=== PATIENT | male | born 1965 | race Caucasian/White ===

== ENCOUNTER 2018-05-07 23:00 | Emergency (ER) | payer MEDICAID ==
[~2018-05-07] VITALS: Wt 104.3 kg
[2018-05-07 23:07] VITALS: RESP 22
--- NOTE | 2018-05-08 02:45 | ERD ---
ER Documentation Chief Complaint Chief Complaint "NOT FEELING LIKE SELF", ANXIOUS X1HR NO NEURODEFICITS/CLEAR SPEECH, AMBULA HPI 53-year-old male with history of diabetes and hypertension, presents the emergency department, complaining of acute onset of dizziness 1 hour prior to arrival, associated with nausea and blurred vision. The patient denies distal weakness, no numbness, no tingling. He also denies chest pain, no shortness of breath. ROS All systems reviewed and are negative except as per history of present illness. Medications Home Meds Active Scripts Meclizine Hcl* (Antivert*) 12.5 Mg Tab, 12.5 MG PO Q6H PRN for DIZZINESS for 3 Days, #12 TAB Prov:TARYN VILLATORO MD 05/08/18 Allergies Allergies: Coded Allergies: No Known Allergy (Unverified , 05/08/18) PMhx/Soc History of Surgery: Yes (SCROTAL SURGERY) Hx Miscellaneous Medical Probl: Yes (DM) Hx Alcohol Use: No Hx Substance Use: No Hx Tobacco Use: No FmHx Family History: diabetes Physical Exam Vitals Vital Signs Date Temp Pulse Resp B/P (MAP) Pulse Ox O2 O2 Flow FiO2 Time Delivery Rate 05/07/18 98.8 83 22 124/75 97 23:07 (91) Physical Exam Const: No acute distress Head: Atraumatic Eyes: Normal Conjunctiva ENT: Normal External Ears, Nose and Mouth. Neck: Full range of motion. No meningismus. Resp: Clear to auscultation bilaterally Cardio: Regular rate and rhythm, no murmurs Abd: Soft, non tender, non distended. Normal bowel sounds Skin: No petechiae or rashes Back: No midline or flank tenderness Ext: No cyanosis, or edema Neur: Awake and alert. mild horizontal nystagmus while the patient was looking straight ahead with mildly abnormal head impulse test. Psych: Normal Mood and Affect Result Diagram: 05/08/1824805/08/18248 Results 24 hrs Laboratory Tests Test 05/08/18 02:49 05/08/18 02:52 White Blood Count 7.8 10^3/ul Red Blood Count 4.81 10^6/ul Hemoglobin 14.9 g/dl Hematocrit 43.7 % Mean Corpuscular Volume 90.9 fl Mean Corpuscular Hemoglobin 31.0 pg Mean Corpuscular Hemoglobin Concent 34.1 g/dl Red Cell Distribution Width 12.7 % Platelet Count 211 10^3/UL Mean Platelet Volume 10.1 fl Immature Granulocytes % 0.500 % Neutrophils % 65.8 % Lymphocytes % 25.6 % Monocytes % 6.4 % Eosinophils % 1.3 % Basophils % 0.4 % Nucleated Red Blood Cells % 0.0 /100WBC Immature Granulocytes # 0.040 10^3/ul Neutrophils # 5.2 10^3/ul Lymphocytes # 2.0 10^3/ul Monocytes # 0.5 10^3/ul Eosinophils # 0.1 10^3/ul Basophils # 0.0 10^3/ul Nucleated Red Blood Cells # 0.0 10^3/ul Prothrombin Time 12.3 Sec Prothrombin Time Ratio 1.0 INR International Normalized Ratio 0.90 Activated Partial Thromboplast Time 28.8 Sec Urine Color YELLOW Urine Clarity CLEAR Urine pH 5.0 Urine Specific Peterson 1.026 Urine Ketones NEGATIVE mg/dL Urine Nitrite NEGATIVE mg/dL Urine Bilirubin NEGATIVE mg/dL Urine Urobilinogen NEGATIVE mg/dL Urine Leukocyte Esterase NEGATIVE Kendra/ul Urine Hemoglobin NEGATIVE mg/dL Urine Glucose 2+ mg/dL Urine Total Protein NEGATIVE mg/dl Sodium Level 143 mmol/L Potassium Level 5.0 mmol/L Chloride Level 105 mmol/L Carbon Dioxide Level 30 mmol/L Anion Gap 8 Blood Urea Nitrogen 15 mg/dl Creatinine 1.04 mg/dl Est Glomerular Filtrat Rate mL/min > 60 mL/min Glucose Level 123 mg/dl Calcium Level 9.8 mg/dl Troponin I < 0.012 ng/ml Bedside Glucose 113 mg/dL DIAGNOSTIC IMAGING REPORT Patient: DARYL HUNT : 1965 Age: 53 Sex: M MR #: [id number] DOS: 05/08/18 0242 Ordering MD: TARYN VILLATORO MD Location: [facility] Room/Bed: PROCEDURE: CT BRAIN CLINICAL INDICATION: Headache. TECHNIQUE: Contiguous axial imaging was performed from the skull base to the vertex without contrast. Coronal and sagittal reformatting was utilized. DICOM images are available. CTDIvol: 39.3 mGy mGy. Total Exam DLP: 713.51 mGy.cm mGy-cm. This CT exam was performed using one or more of the following dose reduction techniques: Automated exposure control, adjustment of the mA and/or kV according to patient size, use of iterative reconstruction technique. COMPARISON: None. FINDINGS: PARENCHYMA: There is prominence of the ventricles and sulci likely reflecting age related involutional changes. Mild white matter hypodense changes are present likely reflecting microvascular disease with right frontal parietal predominance. EXTRA-AXIAL SPACE: No hemorrhage is seen. VASCULATURE: Unremarkable for this non-angiographic study. OSSEOUS STRUCTURES: Calvarium is intact. PARANASAL SINUSES/MASTOID AIR CELLS: Clear. VISUALIZED ORBITAL CONTENTS: Preserved. IMPRESSION: 1. No acute intracranial abnormalities. RPTAT:HGST Nuris Leyva Physician Date Time Electronically viewed and signed by Nuris Leyva Physician on 05/08/2018 03:28 Procedures/MDM Vital signs stable, neurovascular exam revealed horizontal nystagmus while the patient was looking straight ahead with mildly abnormal head impulse test. Differential diagnosis include but not limited to dehydration, cardiac arrhythmia, , Mnire's disease, vestibular neuronitis, migraine, vertigo, side effects of the medications, hypoglycemia. Less likely but is still a possibility, intracranial hemorrhage, ischemic stroke, [employer] neoplasm. Pertinent Data: 12 Lead ECG: Sinus rhythm, no ST changes, normal T wave, normal intervals Labs: CBC: normal, BMP: normal kidney function, normal electrolytes. Glucose: 122 CT head: Normal Physical examination and clinical presentation consistent most likely with positional vertigo. During the ED course the patient remained stable, no new complaints. Results and clinical impression discussed with patient who agrees with management. The patient is stable to be treated outpatient and will be di scharged home with instructions to follow up with the primary care provider in the next 48h. If symptoms persist, worsen or new symptoms develop, then patient should return to the ED immediately. Instructions explained and given directly by me to the patient with acknowledgment and demonstrated understanding. Disclaimer: Inadvertent spelling and grammatical errors are likely due to EHR/dictation software use and do not reflect on the overall quality of patient care. Also, please note that the electronic time recorded on this note does not necessarily reflect the actual time of the patient encounter. Departure Diagnosis: Primary Impression: Positional vertigo Condition: Stable Additional Instructions: Muchas shasta por [facility] para navarrete servicio. Esperamos que en navarrete visita a la nilsa de emergencia navarrete problema medico haya sido solucionado y que se sienta mucho mejor. Para estar seguros que navarrete mejoria sigue en proceso, le pedimos el favor de hacer mk nathalie de seguimiento medico con navarrete doctor primario en los proximos 2-4 roberts. Lleve con usted estos documentos y las medicinas recetadas. Si farida sintomas empeoran, NO SE ESPERE, por favor regrese a nilsa de emergencia INMEDIATAMENTE. En karan que usted no tenga un mdico de atencin primaria: Llame al mdico o clnica comunitaria de referencia que aparece abajo lavinia las horas de consultorio para hacer mk nathalie para que le vean. CLINICAS: [facility] [phone] [facility] [phone] [facility] [phone] [facility] [phone] [facility] [phone] [facility] [facility] [phone] MD May 08, 2018 02:45
[2018-05-08] MEDS ORDERED: MECL12.574 PO (03:53)
[2018-05-08 04:05] VITALS: BP 117/74; PULSE 72
== END 2018-05-08 04:08 | disposition home or self-care (01) ==
LOC: FTE 23:00
DX: H81.10 Benign paroxysmal vertigo, unspecified ear (principal); E11.9 Type 2 diabetes mellitus without complications; I10 Essential (primary) hypertension
CPT/HCPCS: 36415; 70450; 80048; 81003; 82962; 84484; 85025; 85610; 85730; 93005; Z7502